=== PATIENT | male | born 1970 | race American Indian/Alaskan Native ===

== ENCOUNTER 2017-05-25 23:58 | Observation (INO) | payer OTHER ==
[2017-05-26] MEDS ORDERED: Sodium Chloride 0.9% 10 ML Syringe FLUSH PRN (00:08)
[2017-05-26] MEDS ORDERED: Sodium Chloride 0.9% 2.5 ML Syringe FLUSH PRN (00:08)
[2017-05-26] MEDS ORDERED: Sodium Chloride 0.9% 1,000 ML IV ONE ×2 (00:10→02:56)
[2017-05-26] MEDS ORDERED: Morphine 2 MG/ML Syringe IVPUSH ONE (00:10)
[2017-05-26] MEDS ORDERED: Ketorolac 30 MG/ML SDV IVPUSH ONE (00:10)
[2017-05-26] MEDS ORDERED: Acetaminophen 500 MG Tab PO ONE (00:13)
--- NOTE | 2017-05-26 00:13 | EDM.PDOC ---
ED HPI GENERAL MEDICAL PROBLEM - General Chief Complaint: Chest Pain Stated Complaint: SHORTNESS OF BREATH Time Seen by Provider: 05/26/17 00:03 - History of Present Illness INITIAL COMMENTS - FREE TEXT/NARRATIVE: HISTORY AND PHYSICAL: History of present illness: The patient is a 47-year-old male with no stated medical history no cardiac or pulmonary disease who presents with left-sided chest pain/chest wall pain that started at 2 AM yesterday morning, approximately 22 hours ago. The patient was on vacation in the [facility] and said it started before he left the [facility] and continue throughout the day and throughout his flight home. He has no fever or cough runny nose abdominal pain vomiting or diarrhea. He denies any trauma to the area. Patient says the pain is worse with certain movements and deep breaths. He says he has had episodes of this in the past but they usually only last about 20 minutes and if he slows down his breathing and tries to calm down a usually gets better. He has never been diagnosed with any lung problems. He says the pain is localized to one specific area of his left anterior chest wall and does not radiate. Patient was unaware that he had a fever when he arrived here in the ED but in triage was noted to have a temp of 101.6 Patient denies any leg pain calf pain or leg asymmetry Review of systems: As per history of present illness and below otherwise all systems reviewed and negative. Past medical history: As per history of present illness and as reviewed below otherwise noncontributory. Surgical history: As per history of present illness and as reviewed below otherwise noncontributory. Social history: No reported history of drug or alcohol abuse. Family history: As per history of present illness and as reviewed below otherwise noncontributory. Physical exam: Gen.: Well-developed well-nourished man seems uncomfortable in the room with movements and breaths but is not specifically breathless. Vital signs are noted by me including his temperature. HEENT: Atraumatic, normocephalic, pupils reactive, negative for conjunctival pallor or scleral icterus, mucous membranes moist, throat clear, neck supple, nontender, trachea midline. Lungs: Clear to auscultation, breath sounds equal bilaterally, chest discrete tenderness of the anterior lower rib cage/chest wall on the left underneath the breast with reproducible pain, there is no crepitus defects or deformities and there is no wheezing or stridor. There is splinting as the patient refrains from taking a deep breath due to the discomfort. Heart: S1S2, regular rhythm tachycardic rate, negative for clicks, rubs, or JVD. Abdomen: Soft, nondistended, nontender. Negative for masses or hepatosplenomegaly. NABS Pelvis: Stable nontender. Genitourinary: Deferred. Rectal: Deferred. Extremities: Atraumatic, negative for cords or calf pain. Neurovascular unremarkable. No pedal edema or leg asymmetry Neuro: Awake, alert, oriented. Cranial nerves II through XII unremarkable. Cerebellum unremarkable. Motor and sensory unremarkable throughout. Exam nonfocal. Diagnostics: EKG CBC CMP INR troponin chest x-ray influenza lactic acid CTA of the chest Therapeutics: IV O2 monitor IV fluids Tylenol Toradol morphine Lovenox Rocephin All testing results were reviewed with the patient. He now tells me that he was doing abdominal exercises before he started having this pain and he was using weights with them and he is concerned he may have pulled a muscle which then triggered all the subsequent symptomatology. He says his pain is currently improved but is still present and he rates as a 4-5/10. He says it is still worse when he takes a deep breath or has certain movements. When the patient is at rest his O2 sat does dip down to 91%. The CTA of the chest did not show any central pulmonary emboli but it was a suboptimal study for smaller emboli. In light of the patient's presentation with fever and hypoxia on room air I will discuss the case with our hospitalist Dr. Newsome. 0250: Case was discussed with Dr. Newsome and he agrees with observation admission on telemetry. I will send 2 blood cultures, give a dose of Rocephin and a dose of Lovenox. Impression: Pleuritic left chest pain with fever and mild hypoxia etiology unclear Definitive disposition and diagnosis as appropriate pending reevaluation and review of above. chest Pain Score (Numeric/FACES): 10 - Related Data Allergies Allergy/AdvReac Type Severity Reaction Status Date / Time aspirin Allergy Stomach Verified 05/26/17 00:09 Upset Home Meds: Home Meds . [No Known Home Meds] 07/10/15 [History] Past Medical History - Past Health History Medical/Surgical History: Denies Medical/Surgical History Musculoskeletal History: Reports: None Neurological History: Reports: None Psychiatric History: Reports: None Hematologic History: Reports: None Immunologic History: Reports: None Dermatologic History: Reports: None - Past Surgical History Musculoskeletal Surgical History: Reports: Other (See Below) Social & Family History - Tobacco Use Smoking Status *Q: Never Smoker - Recreational Drug Use Recreational Drug Use: No ED ROS GENERAL - Review of Systems Review Of Systems: ROS reveals no pertinent complaints other than HPI. ED EXAM, GENERAL - Physical Exam Exam: See Below (See dictation) Course - Vital Signs Last Recorded V/S: Last Vital Signs Temp 37.2 C 05/26/17 02:34 Pulse 107 H 05/26/17 02:34 Resp 95 H 05/26/17 02:34 BP 111/69 05/26/17 02:34 Pulse Ox 2 L 05/26/17 02:34 - Orders/Labs/Meds Orders: Active Orders 24 hr Category Date Time Status Patient Status [ADT] Stat ADT 05/26/17 02:51 Ordered Cardiac Monitoring [RC] . DIRECTED Care 05/26/17 00:08 Active EKG Documentation Completion [RC] STAT Care 05/26/17 00:08 Active Oxygen Therapy, ED [RC] ASDIRECTED Care 05/26/17 00:08 Active Pulse Oximetry [RC] ASDIRECTED Care 05/26/17 00:08 Active Ang Chest [CT] Stat Exams 05/26/17 01:21 Taken Chest 2V [CR] Stat Exams 05/26/17 00:13 Taken CULTURE BLOOD [BC] Stat Lab 05/26/17 02:50 Ordered CULTURE BLOOD [BC] Stat Lab 05/26/17 02:50 Ordered Enoxaparin [Lovenox] Med 05/26/17 02:50 Once 100 mg SUBCUT ONETIME ONE Sodium Chloride 0.9% [Saline Flush] Med 05/26/17 00:08 Active 10 ml FLUSH ASDIRECTED PRN Sodium Chloride 0.9% [Saline Flush] Med 05/26/17 00:08 Active 2.5 ml FLUSH ASDIRECTED PRN cefTRIAXone [Rocephin in Dextrose,Iso-Osm 2 GM/50 ML] 2 Med 05/26/17 02:50 Ordered gm Premix Bag 1 bag IV ONETIME Blood Culture x2 Reflex Set [OM.PC] Stat Oth 05/26/17 02:50 Ordered Saline Lock Insert [OM.PC] Stat Oth 05/26/17 00:08 Ordered Medication Orders Sodium Chloride (Saline Flush) 10 ml FLUSH ASDIRECTED PRN PRN Reason: Keep Vein Open Last Admin: 05/26/17 00:23 Dose: 10 ml Sodium Chloride (Saline Flush) 2.5 ml FLUSH ASDIRECTED PRN PRN Reason: Keep Vein Open Last Admin: 05/26/17 00:18 Dose: 2.5 ml Labs: Laboratory Tests 05/26/17 05/26/17 05/26/17 Range/Units 00:05 00:05 00:05 WBC 12.49 H (4.0-11.0) K/uL RBC 5.13 (4.50-5.90) M/uL Hgb 15.7 (13.0-17.0) g/dL Hct 45.7 (38.0-50.0) % MCV 89.1 (80.0-98.0) fL MCH 30.6 (27.0-32.0) pg MCHC 34.4 (31.0-37.0) g/dL RDW Std Deviation 40.7 (28.0-62.0) fl RDW Coeff of Brandon 13 (11.0-15.0) % Plt Count 236 (150-400) K/uL MPV 10.30 (7.40-12.00) fL Neut % (Auto) 77.2 (48.0-80.0) % Lymph % (Auto) 11.0 L (16.0-40.0) % Banks % (Auto) 10.1 (0.0-15.0) % Eos % (Auto) 1.6 (0.0-7.0) % Baso % (Auto) 0.1 (0.0-1.5) % Neut # (Auto) 9.7 H (1.4-5.7) K/uL Lymph # (Auto) 1.4 (0.6-2.4) K/uL Banks # (Auto) 1.3 H (0.0-0.8) K/uL Eos # (Auto) 0.2 (0.0-0.7) K/uL Baso # (Auto) 0.0 (0.0-0.1) K/uL INR 1.03 (0.86-1.11) Lactate (0.20-2.00) mmol/L Sodium 139 (136-146) mmol/L Potassium 3.9 (3.5-5.1) mmol/L Chloride 105 (98-110) mmol/L Carbon Dioxide 23 (21-31) mmol/L BUN 14 (6.0-23.0) mg/dL Creatinine 1.1 (0.6-1.5) mg/dL Est Cr Clr Drug Dosing 84.80 mL/min Estimated GFR (MDRD) > 60.0 ml/min Glucose 107 (60-110) mg/dL Calcium 9.6 (8.8-10.8) mg/dL Total Bilirubin 0.8 (0.1-1.5) mg/dL AST 13 (5-40) IU/L ALT 17 (8-54) IU/L Alkaline Phosphatase 96 (40-150) Troponin I < 0.10 (0.0-0.29) NG/ML Total Protein 7.9 (6.0-8.0) g/dL Albumin 4.4 (3.5-5.0) g/dL Globulin 3.5 (2.0-3.5) g/dL Albumin/Globulin Ratio 1.3 (1.3-2.8) 05/26/17 Range/Units 00:08 WBC (4.0-11.0) K/uL RBC (4.50-5.90) M/uL Hgb (13.0-17.0) g/dL Hct (38.0-50.0) % MCV (80.0-98.0) fL MCH (27.0-32.0) pg MCHC (31.0-37.0) g/dL RDW Std Deviation (28.0-62.0) fl RDW Coeff of Brandon (11.0-15.0) % Plt Count (150-400) K/uL MPV (7.40-12.00) fL Neut % (Auto) (48.0-80.0) % Lymph % (Auto) (16.0-40.0) % Banks % (Auto) (0.0-15.0) % Eos % (Auto) (0.0-7.0) % Baso % (Auto) (0.0-1.5) % Neut # (Auto) (1.4-5.7) K/uL Lymph # (Auto) (0.6-2.4) K/uL Banks # (Auto) (0.0-0.8) K/uL Eos # (Auto) (0.0-0.7) K/uL Baso # (Auto) (0.0-0.1) K/uL INR (0.86-1.11) Lactate 1.0 (0.20-2.00) mmol/L Sodium (136-146) mmol/L Potassium (3.5-5.1) mmol/L Chloride (98-110) mmol/L Carbon Dioxide (21-31) mmol/L BUN (6.0-23.0) mg/dL Creatinine (0.6-1.5) mg/dL Est Cr Clr Drug Dosing mL/min Estimated GFR (MDRD) ml/min Glucose (60-110) mg/dL Calcium (8.8-10.8) mg/dL Total Bilirubin (0.1-1.5) mg/dL AST (5-40) IU/L ALT (8-54) IU/L Alkaline Phosphatase (40-150) Troponin I (0.0-0.29) NG/ML Total Protein (6.0-8.0) g/dL Albumin (3.5-5.0) g/dL Globulin (2.0-3.5) g/dL Albumin/Globulin Ratio (1.3-2.8) Meds: Medications Generic Name Dose Route Start Last Admin Trade Name Freq PRN Reason Stop Dose Admin Sodium Chloride 10 ml 05/26/17 00:08 05/26/17 00:23 Saline Flush FLUSH 10 ml ASDIRECTED PRN Administration Keep Vein Open Sodium Chloride 2.5 ml 05/26/17 00:08 05/26/17 00:18 Saline Flush FLUSH 2.5 ml ASDIRECTED PRN Administration Keep Vein Open Discontinued Medications Generic Name Dose Route Start Last Admin Trade Name Freq PRN Reason Stop Dose Admin Acetaminophen 1,000 mg 05/26/17 00:13 05/26/17 00:24 Tylenol Extra Strength PO 05/26/17 00:14 1,000 mg ONETIME ONE Administration Sodium Chloride 1,000 mls @ 999 mls/hr 05/26/17 00:10 05/26/17 00:18 Normal Saline IV 05/26/17 01:10 999 mls/hr STAT ONE Administration Iopamidol 50 ml 05/26/17 02:08 05/26/17 02:09 Isovue Multipack-370 (76%) IVPUSH 05/26/17 02:09 45 ml ONETIME ONE Administration Ketorolac Tromethamine 30 mg 05/26/17 00:10 05/26/17 00:20 Toradol IVPUSH 05/26/17 00:11 30 mg ONETIME ONE Administration Morphine Sulfate 4 mg 05/26/17 00:10 05/26/17 00:21 Morphine IVPUSH 05/26/17 00:11 4 mg ONETIME ONE Administration Departure - Departure Time of Disposition: 02:53 Disposition: Refer to Observation Condition: Good Clinical Impression: Atypical chest pain, Hypoxia Fever Qualifiers: Fever type: due to other condition Qualified Code(s): R50.81 - Fever presenting with conditions classified elsewhere - Discharge Information Referrals: PCP,None [Primary Care Provider] - Forms: ED Department Discharge - My Orders Last 24 Hours: My Active Orders 05/26/17 00:08 Cardiac Monitoring [RC] . DIRECTED EKG Documentation Completion [RC] STAT Oxygen Therapy, ED [RC] ASDIRECTED Pulse Oximetry [RC] ASDIRECTED Sodium Chloride 0.9% [Saline Flush] 10 ml FLUSH ASDIRECTED PRN Sodium Chloride 0.9% [Saline Flush] 2.5 ml FLUSH ASDIRECTED PRN Saline Lock Insert [OM.PC] Stat 05/26/17 00:13 Chest 2V [CR] Stat 05/26/17 01:21 Ang Chest [CT] Stat 05/26/17 02:50 CULTURE BLOOD [BC] Stat CULTURE BLOOD [BC] Stat Enoxaparin [Lovenox] 100 mg SUBCUT ONETIME ONE cefTRIAXone [Rocephin in Dextrose,Iso-Osm 2 GM/50 ML] 2 gm Premix Bag 1 bag IV ONETIME Blood Culture x2 Reflex Set [OM.PC] Stat 05/26/17 02:51 Patient Status [ADT] Stat - Assessment/Plan Last 24 Hours: My Active Orders 05/26/17 00:08 Cardiac Monitoring [RC] . DIRECTED EKG Documentation Completion [RC] STAT Oxygen Therapy, ED [RC] ASDIRECTED Pulse Oximetry [RC] ASDIRECTED Sodium Chloride 0.9% [Saline Flush] 10 ml FLUSH ASDIRECTED PRN Sodium Chloride 0.9% [Saline Flush] 2.5 ml FLUSH ASDIRECTED PRN Saline Lock Insert [OM.PC] Stat 05/26/17 00:13 Chest 2V [CR] Stat 05/26/17 01:21 Ang Chest [CT] Stat 05/26/17 02:50 CULTURE BLOOD [BC] Stat CULTURE BLOOD [BC] Stat Enoxaparin [Lovenox] 100 mg SUBCUT ONETIME ONE cefTRIAXone [Rocephin in Dextrose,Iso-Osm 2 GM/50 ML] 2 gm Premix Bag 1 bag IV ONETIME Blood Culture x2 Reflex Set [OM.PC] Stat 05/26/17 02:51 Patient Status [ADT] Stat
[2017-05-26 00:35] LABS: CHLORIDE,CL 105 mmol/L (98-110); SODIUM,NA 139 mmol/L (136-146)
[2017-05-26] MEDS ORDERED: Iopamidol 755 MG/ML 200 ML Multipack Bottle IVPUSH ONE (02:08)
[2017-05-26] MEDS ORDERED: cefTRIAXone 2 GM in Premix Bag 1 BAG IV ONE (02:50)
[2017-05-26] MEDS ORDERED: Enoxaparin 100 MG/1 ML Syringe SUBCUT ONE (02:50)
[2017-05-26] MEDS ORDERED: FLU Vacc QS 2017-18 (36mos UP)/PF 60 MCG/0.5 ML Syringe IM ONE (06:00)
[2017-05-26 06:37] LABS: CHLORIDE,CL 108 mmol/L (98-110); SODIUM,NA 139 mmol/L (136-146)
[2017-05-26] MEDS: Morphine 2 MG/ML Syringe IVPUSH PRN ×2 (08:18→16:10)
[2017-05-26] MEDS ORDERED: Levofloxacin/Dextrose 5%-Water 750 MG in Premix Bag 1 BAG IV ONE (09:00)
--- NOTE | 2017-05-26 09:02 | PCM.HP ---
H&P History of Present Illness - General Date of Service: 05/26/17 Admit Problem/Dx: Admission Diagnosis/Problem Admission Diagnosis/Problem Chest pain Source of Information: Patient History Limitations: Reports: No Limitations - History of Present Illness Initial Comments - Free Text/Narative: 47 yo male presenting to the ED with a chief complaint of chest pain no significant pmh. Patient presented to ED with left-sided chest pain/chest wall pain that started at 2 AM the previous morning approximately 22 hours before presenting to the ED. The patient was on vacation in the [facility] and said it started before he had left the [facility] and continued throughout the day and throughout his flight home. He denied any associated diaphoresis, nausea or vomiting. He denied any trauma to the area but did report just starting to exercise again and perhaps pulling a muslce when he was doing lat pull downs. He reported the pain was worse with certain movements and deep breaths. He also admits to having had episodes of this in the past but usually only last about 20 minutes and if he slows down his breathing and tries to calm down they usually gets better. He has never been diagnosed with any lung problems. He says the pain is localized to one specific area of his left anterior chest wall and does not radiate. Patient was unaware that he had a fever when he arrived here in the ED he was noted to have a temp of 101.6 Patient denied any leg pain calf pain or leg asymmetry. He also denied any hemoptisis or history of coagualtion discorders. In ED patient was found to have mild leukocytosis at 12.4 K, normal lactate, unremarkable CMP, negative troponin, negative flu. Chest x-ray revealed mild bibasilar atelectasis left greater than right. CTA was performed showing bibasilar scarring and atelectasis but it was a limited study for complete evaluation of pulmonary embolism. Patient's well's criteria when calculated as low probability -2. Patient was febrile with a maximum temperature 101.6. Mildly hypertensive with blood pressure 145/74 and tachycardic with a heart rate of 116. Blood cultures were obtained and patient was given 1 g of Rocephin. He was also given 40 mg Sub q Lovenox. Patient was admitted for observation for atypical chest pain. chest Pain Score (Numeric/FACES): 5 - Related Data Allergies/Adverse Reactions: Allergies Allergy/AdvReac Type Severity Reaction Status Date / Time aspirin Allergy Stomach Verified 05/26/17 00:09 Upset Home Medications: Home Meds Cetirizine HCl/Pseudoephedrine [ZyrTEC-D] 1 tab PO DAILY PRN 05/26/17 [History] Past Medical History - Past Health History Medical/Surgical History: Denies Medical/Surgical History HEENT History: Reports: None Cardiovascular History: Reports: None Respiratory History: Reports: None Gastrointestinal History: Reports: None Genitourinary History: Reports: None Musculoskeletal History: Reports: None Neurological History: Reports: None Psychiatric History: Reports: None Endocrine/Metabolic History: Reports: None Hematologic History: Reports: None Immunologic History: Reports: None Oncologic (Cancer) History: Reports: None Dermatologic History: Reports: None - Infectious Disease History Infectious Disease History: Reports: Chicken Pox, Measles - Past Surgical History Head Surgeries/Procedures: Reports: None Musculoskeletal Surgical History: Reports: Other (See Below) Social & Family History - Family History Family Medical History: Noncontributory - Tobacco Use Smoking Status *Q: Never Smoker - Caffeine Use Caffeine Use: Reports: None - Recreational Drug Use Recreational Drug Use: No H&P Review of Systems - Review of Systems: Review Of Systems: See Below General: Denies: Fever, Chills, Malaise, Weakness HEENT: Denies: Headaches, Sore Throat Pulmonary: Denies: Shortness of Breath, Cough, Sputum Cardiovascular: Reports: Chest Pain. Denies: Palpitations, Edema, Syncope Gastrointestinal: Denies: Abdominal Pain, Black Stool, Bloody Stool, Diarrhea, Nausea, Vomiting Genitourinary: Denies: Dysuria, Hematuria Musculoskeletal: Denies: Neck Pain, Leg Pain Skin: Denies: Cyanosis Psychiatric: Denies: Confusion Neurological: Denies: Confusion, Dizziness, Headache Exam - Exam Exam: See Below - Vital Signs Vital Signs: Last Vital Signs Temp 99.1 F 05/26/17 03:50 Pulse 96 05/26/17 03:50 Resp 20 05/26/17 03:50 BP 125/85 05/26/17 03:50 Pulse Ox 97 05/26/17 03:50 Weight: 86.273 kg - Exam Quality Assessment: DVT Prophylaxis General: Alert, Oriented, Cooperative HEENT: Conjunctiva Clear, EACs Clear, EOMI, Hearing Intact, Mucosa Moist & [place] , Nares Patent, Normal Nasal Septum, Posterior Pharynx Clear, PERRLA Neck: Supple, Trachea Midline, 2 Lungs: Clear to Auscultation, Normal Respiratory Effort Cardiovascular: Regular Rate, Regular Rhythm, Normal S1, Normal S2 GI/Abdominal Exam: Normal Bowel Sounds, Soft, Non-Tender, No Organomegaly, No Distention Back Exam: Normal Inspection Extremities: Normal Inspection, Normal Range of Motion, Non-Tender, No Pedal Edema, Normal Capillary Refill. No: Little's Sign Peripheral Pulses: 2+: Radial (L), Radial (R), Posterior Tibial (L), Posterior Tibial (R), Dorsalis Pedis (L), Dorsalis Pedis (R) Skin: Warm, Dry, Intact Neurological: Cranial Nerves Intact Neuro Extensive - Mental Status: Alert, Oriented x3, Normal Mood/Affect, Normal Cognition Neuro Extensive - Motor, Sensory, Reflexes: CN II-XII Intact Psychiatric: Alert, Normal Affect, Normal Mood - Patient Data Lab Results Last 24 hrs: Laboratory Results - last 24 hr 05/26/17 05/26/17 Range/Units 06:09 06:09 WBC 10.08 (4.0-11.0) K/uL RBC 4.43 L (4.50-5.90) M/uL Hgb 13.8 (13.0-17.0) g/dL Hct 39.5 (38.0-50.0) % MCV 89.2 (80.0-98.0) fL MCH 31.2 (27.0-32.0) pg MCHC 34.9 (31.0-37.0) g/dL RDW Std Deviation 40.3 (28.0-62.0) fl RDW Coeff of Brandon 13 (11.0-15.0) % Plt Count 207 (150-400) K/uL MPV 9.90 (7.40-12.00) fL Nucleated RBC % 0.0 /100WBC Nucleated RBCs # 0 K/uL Sodium 139 (136-146) mmol/L Potassium 4.2 (3.5-5.1) mmol/L Chloride 108 (98-110) mmol/L Carbon Dioxide 24 (21-31) mmol/L BUN 14 (6.0-23.0) mg/dL Creatinine 1.1 (0.6-1.5) mg/dL Est Cr Clr Drug Dosing 84.80 mL/min Estimated GFR (MDRD) > 60.0 ml/min Glucose 94 (60-110) mg/dL Calcium 8.9 (8.8-10.8) mg/dL Total Bilirubin 0.7 (0.1-1.5) mg/dL AST 14 (5-40) IU/L ALT 14 (8-54) IU/L Alkaline Phosphatase 76 (40-150) Troponin I < 0.10 (0.0-0.29) NG/ML Total Protein 6.3 (6.0-8.0) g/dL Albumin 3.6 (3.5-5.0) g/dL Globulin 2.7 (2.0-3.5) g/dL Albumin/Globulin Ratio 1.3 (1.3-2.8) Result Diagrams: 05/26/17 06:09 05/26/17 06:09 *Q Meaningful Use (ADM) - VTE *Q VTE Criteria *Q: - Stroke *Q Stroke Criteria *Q: - AMI *Q AMI Criteria *Q: - Problem List (1) Leukocytosis, unspecified SNOMED Code(s): 191187401 ICD Code: D72.829 - ELEVATED WHITE BLOOD CELL COUNT, UNSPECIFIED Status: Acute Priority: High Current Visit: Yes Qualifiers: Leukocytosis type: unspecified Qualified Code(s): D72.829 - Elevated white blood cell count, unspecified (2) Atypical chest pain SNOMED Code(s): 477136576 ICD Code: R07.89 - OTHER CHEST PAIN Status: Acute Priority: High Current Visit: Yes (3) Fever SNOMED Code(s): 375126235 ICD Code: R50.9 - FEVER, UNSPECIFIED Status: Acute Priority: High Current Visit: Yes Qualifiers: Fever type: due to other condition Qualified Code(s): R50.81 - Fever presenting with conditions classified elsewhere Problem List Initiated/Reviewed/Updated: Yes Orders Last 24hrs: Active Orders 24 hr Category Date Time Status Patient Status [ADT] Routine ADT 05/26/17 03:15 Active Telemetry Monitoring [Cardiac Monitoring] [RC] . Care 05/26/17 03:11 Active DIRECTED Heart Healthy Diet [DIET] Diet 05/26/17 Breakfast Active TROPONIN I [CHEM] Q6H Lab 05/26/17 12:05 Ordered Acetaminophen [Tylenol] Med 05/26/17 05:09 Active 650 mg PO Q6H PRN Enoxaparin [Lovenox] Med 05/26/17 15:00 Active 85 mg SUBCUT DAILY@1500 Levofloxacin/Dextrose 5%-Water [Levaquin in D5W 750 MG/ Med 05/26/17 09:00 Ordered 150 ML] 750 mg Premix Bag 1 bag IV ONETIME Morphine Med 05/26/17 05:10 Active 2 mg IVPUSH Q2H PRN Sodium Chloride 0.9% [Normal Saline] 1,000 ml Med 05/26/17 02:56 Active IV STAT Medication Orders Acetaminophen (Tylenol) 650 mg PO Q6H PRN PRN Reason: Pain Enoxaparin Sodium (Lovenox) 85 mg SUBCUT DAILY@1500 DOC Sodium Chloride (Normal Saline) 1,000 mls @ 125 mls/hr IV STAT ONE Stop: 05/26/17 10:55 Last Admin: 05/26/17 03:09 Dose: 125 mls/hr Levofloxacin/Dextrose 750 mg/ (Premix) 150 mls @ 100 mls/hr IV ONETIME ONE Stop: 05/26/17 10:29 Morphine Sulfate (Morphine) 2 mg IVPUSH Q2H PRN PRN Reason: Pain (severe 7-10) Last Admin: 05/26/17 08:18 Dose: 2 mg Sodium Chloride (Saline Flush) 10 ml FLUSH ASDIRECTED PRN PRN Reason: Keep Vein Open Last Admin: 05/26/17 00:23 Dose: 10 ml Sodium Chloride (Saline Flush) 2.5 ml FLUSH ASDIRECTED PRN PRN Reason: Keep Vein Open Last Admin: 05/26/17 00:18 Dose: 2.5 ml Assessment/Plan Comment:: 47-year-old male admitted 05/26/17 for atypical chest pain with associated fever and mild leukocytosis with no significant past medical history. Atypical chest pain: Pain is somewhat reproducible on exam and seems to be more chest wall nature. Patient does admit to recently starting exercise and possibly causing injury to his chest wall while exercising. Initial troponin was negative we will continue serial troponins every [address] him on telemetry. CTA showed bibasilar scarring and atelectasis but a poor study to evaluate for PE, however Wells criteria is -2 low probability. Patient maybe splinting from chest wall musculoskeletal strain leading to decreased inspiratory volumes which may be resulting in some atelectasis which could also explain his mildly elevated white blood cells and low-grade fever. We however will treat him for possible pneumonia with Levaquin IV and monitor closely. Fever/mild leukocytosis: As above a be a result of atelectasis from splinting secondary to musculoskeletal pain. However, we will treat for possible community -acquired pneumonia with Levaquin. VTE proph: Lovenox 40 mg subq, SCD Dispo: 1-2 days.
[2017-05-26] MEDS: Acetaminophen 325 MG Tab PO PRN ×2 (09:40→20:20)
[2017-05-26] MEDS ORDERED: Ondansetron 4 MG Tab.DIS PO PRN (12:54)
[2017-05-26] MEDS ORDERED: Morphine 2 MG/ML Syringe IVPUSH PRN (12:54)
[2017-05-26] MEDS ORDERED: Enoxaparin 100 MG/1 ML Syringe SUBCUT SCH (15:00)
[2017-05-27 06:24] LABS: CHLORIDE,CL 104 mmol/L (98-110); SODIUM,NA 138 mmol/L (136-146)
[2017-05-27] MEDS: Acetaminophen 325 MG Tab PO PRN (07:55)
[2017-05-27 08:24] VITALS: BP 121/77
[2017-05-27] MEDS ORDERED: Enoxaparin 40 MG/0.4 ML Syringe SUBCUT SCH (09:00)
[2017-05-27] MEDS ORDERED: Levofloxacin/Dextrose 5%-Water 750 MG in Premix Bag 1 BAG IV SCH (09:00)
--- NOTE | 2017-05-27 11:18 | CR ---
EXAM DATE: 05/26/17 PATIENT'S AGE: 47 Patient: ROWAN MURPHY Facility: [place], [place] Site . Site : [id number] Study: XRay Chest [id number]/7/2018 12:39:06 AM Ordering Physician: Narciso Horowitz Final Report: INDICATIONS: Chest pain. Shortness of breath. TECHNIQUE: Chest 2 view. COMPARISON: Chest radiograph July 10, 2015. FINDINGS: No pneumothorax or pleural effusion. Mild bibasilar opacities, left greater than right. The lungs are otherwise clear. Cardiac and mediastinal contours are within normal limits. Upper abdomen and osseous structures show no acute abnormality. IMPRESSION: Mild bibasilar atelectasis or airspace disease, left greater than right. Dictated by Juan Luis Macedo MD @ 05/26/2017 1:12:33 AM Dictated by: Juan Luis Macedo MD @ 05/26/2017 01:12:39 (Electronic Signature) Report Signed by Proxy. [email or web address]
--- NOTE | 2017-05-27 11:19 | CT ---
EXAM DATE: 05/26/17 PATIENT'S AGE: 47 Patient: ROWAN MURPHY Facility: [place], [place] Site . Site : 1970 Study: CT Chest Angio [id number]/[id number] 2:07:10 AM Ordering Physician: Narciso Horowitz Final Report: INDICATION: Shortness of breath. TECHNIQUE: CT chest pulmonary angiogram acquired with 45 mL of Isovue 370 IV contrast. COMPARISON: None FINDINGS: Cardiovascular structures: There is suboptimal opacification of pulmonary arteries. Motion artifact also degrades image quality. Given these limitations, there is no central pulmonary embolus. More peripheral pulmonary emboli cannot be excluded. The thoracic aorta is normal in caliber. Heart size is within normal limits. Mediastinum and shimon: No mass or adenopathy. Lungs: No pneumothorax. There are secretions in the trachea and proximal mainstem bronchi. Bibasilar scarring and atelectasis. The lungs are otherwise clear. Pleura and pericardium: No effusions. Chest wall and axilla: No mass or adenopathy. Bones: No significant findings. Upper abdomen: Unremarkable. IMPRESSION: Limited study for evaluation of pulmonary embolus. No central pulmonary embolus. Bibasilar atelectasis. Dictated by Juan Luis Macedo MD @ 05/26/2017 2:34:55 AM Dictated by: Juan Luis Macedo MD @ 05/26/2017 02:35:43 (Electronic Signature) Report Signed by Proxy. [facility] MED[facility] CENTERChristophe
--- NOTE | 2017-05-27 11:43 | PCM.DCSUM1 ---
Discharge Summary - Hospital Course HPI Initial Comments: 47-year-old male admitted 05/26/17 for atypical chest pain with associated fever and mild leukocytosis with no significant past medical history. Brief History: Patient presented to ED with left-sided chest pain/chest wall pain that started at 2 AM the previous morning approximately 22 hours before presenting to the ED. The patient was on vacation in the [facility] and said it started before he had left the [facility] and continued throughout the day and throughout his flight home. He denied any associated diaphoresis, nausea or vomiting. He denied any trauma to the area but did report just starting to exercise again and perhaps pulling a muslce when he was doing lat pull downs. He reported the pain was worse with certain movements and deep breaths. He also admits to having had episodes of this in the past but usually only last about 20 minutes and if he slows down his breathing and tries to calm down they usually gets better. He has never been diagnosed with any lung problems. He said the pain was localized to one specific area of his left anterior chest wall and did not radiate. Patient was unaware that he had a fever when he arrived here in the ED he was noted to have a temp of 101.6 Patient denied any leg pain calf pain or leg asymmetry. He also denied any hemoptisis or history of coagualtion discorders. - Discharge Data Discharge Date: 05/27/17 Discharge Disposition: Home, Self-Care 01 Condition: Good - Discharge Diagnosis/Problem(s) (1) Leukocytosis, unspecified SNOMED Code(s): 884830428 ICD Code: D72.829 - ELEVATED WHITE BLOOD CELL COUNT, UNSPECIFIED Status: Resolved Priority: High Qualifiers: Leukocytosis type: unspecified Qualified Code(s): D72.829 - Elevated white blood cell count, unspecified (2) Atypical chest pain SNOMED Code(s): 610890234 ICD Code: R07.89 - OTHER CHEST PAIN Status: Resolved Priority: High (3) Fever SNOMED Code(s): 408802473 ICD Code: R50.9 - FEVER, UNSPECIFIED Status: Resolved Priority: High Qualifiers: Fever type: due to other condition Qualified Code(s): R50.81 - Fever presenting with conditions classified elsewhere - Patient Instructions Diet: Usual Diet as Tolerated Activity: Rest and Relax Today Driving: Do Not Drive Showering/Bathing: September Shower Notify Provider of: Fever, Increased Pain, Nausea and/or Vomiting Other/Special Instructions: Follow-up with scheduled primary care appointment. Take antibiotics as perscribed for 4 more days. Return to ED if worsening symptoms. - Discharge Plan Prescriptions/Med Rec: Levofloxacin [Levaquin] 750 mg PO DAILY #4 tablet Home Medications: Home Meds Cetirizine HCl/Pseudoephedrine [ZyrTEC-D] 1 tab PO DAILY PRN 05/26/17 [History] Levofloxacin [Levaquin] 750 mg PO DAILY #4 tablet 05/27/17 [Rx] Patient Handouts: Fever, Adult, Nonspecific Chest Pain, [id number], Levofloxacin tablets Referrals: Finn Quezada MD [Resident] - 06/04/17 2:30 pm - Discharge Summary/Plan Comment DC Time >30 min.: Yes Discharge Summary/Plan Comment: 47-year-old male admitted 05/26/17 for atypical chest pain with associated fever and mild leukocytosis with no significant past medical history. Patient presented to ED with left-sided chest pain/chest wall pain that started at 2 AM the previous morning approximately 22 hours before presenting to the ED. The patient was on vacation in the [facility] and said it started before he had left the [facility] and continued throughout the day and throughout his flight home. He denied any associated diaphoresis, nausea or vomiting. He denied any trauma to the area but did report just starting to exercise again and perhaps pulling a muslce when he was doing lat pull downs. He reported the pain was worse with certain movements and deep breaths. He also admits to having had episodes of this in the past but usually only last about 20 minutes and if he slows down his breathing and tries to calm down they usually gets better. He has never been diagnosed with any lung problems. He said the pain was localized to one specific area of his left anterior chest wall and did not radiate. Patient was unaware that he had a fever when he arrived here in the ED he was noted to have a temp of 101.6 Patient denied any leg pain calf pain or leg asymmetry. He also denied any hemoptisis or history of coagualtion discorders. In ED patient was found to have mild leukocytosis at 12.4 K, normal lactate, unremarkable CMP, negative troponin, negative flu. Chest x-ray revealed mild bibasilar atelectasis left greater than right. CTA was performed showing bibasilar scarring and atelectasis but it was a limited study for complete evaluation of pulmonary embolism. Patient's well's criteria when calculated as low probability -2. Patient was febrile with a maximum temperature 101.6. Mildly hypertensive with blood pressure 145/74 and tachycardic with a heart rate of 116. Blood cultures were obtained and patient was given 1 g of Rocephin. He was also given 40 mg Sub q Lovenox. Patient was admitted for atypical chest pain. Atypical chest pain: Pain was somewhat reproducible on exam and seemed to be more chest wall in nature. Patient does admit to recently starting exercise and possibly causing injury to his chest wall while exercising. Serial troponins were negative. CTA showed bibasilar scarring and atelectasis but a poor study to evaluate for PE, however Wells criteria is -2 low probability. Patient perhaps was splinting from chest wall musculoskeletal strain leading to decreased inspiratory volumes which may have resulted in some atelectasis which could also explain his mildly elevated white blood cells and low-grade fever. We however treated him for possible pneumonia with Levaquin IV and monitor closely. Patient did well throughout his stay and was discharged home with scheduled PCP follow-up as well as a perscription for for an addition 4 days of levaquin for a total of 5 days of antibiotics. He was instructed to return to the ED if any of his symptoms returned. - General Info Date of Service: 05/27/17 Admission Dx/Problem (Free Text: Admission Diagnosis/Problem Admission Diagnosis/Problem Chest pain Subjective Update: Doing well. Chest pain has improved but still hurts when he coughs or moves wrong. No nausea, vomiting, fever, chills, diarrhea. Would like to be discharged. - Review of Systems General: Denies: Fever, Weakness, Fatigue HEENT: Denies: Dysphasia, Visual Changes Pulmonary: Reports: Cough. Denies: Shortness of Breath, Sputum, Hemoptysis, Wheezing Cardiovascular: Reports: Chest Pain. Denies: Palpitations, Edema Gastrointestinal: Denies: Abdominal Pain, Nausea, Vomiting Genitourinary: Denies: Dysuria, Hematuria Musculoskeletal: Denies: Neck Pain, Foot Pain Skin: Denies: Cyanosis Neurological: Denies: Confusion, Dizziness, Headache Psychiatric: Denies: Confusion - Patient Data Vitals - Most Recent: Last Vital Signs Temp 98.9 F 05/27/17 09:47 Pulse 107 H 05/27/17 08:00 Resp 20 05/27/17 08:00 BP 121/77 05/27/17 08:00 Pulse Ox 94 L 05/27/17 08:00 Weight - Most Recent: 86.273 kg I&O - Last 24 hours: Intake & Output 05/26/17 05/27/17 05/27/17 22:59 06:59 14:59 Intake Total 2300 1440 150 Output Total 2660 1525 Balance -360 -85 150 Lab Results - Last 24 hrs: Laboratory Results - last 24 hr 05/26/17 05/27/17 05/27/17 Range/Units 12:08 05:17 05:17 WBC 10.04 (4.0-11.0) K/uL RBC 4.62 (4.50-5.90) M/uL Hgb 14.2 (13.0-17.0) g/dL Hct 41.4 (38.0-50.0) % MCV 89.6 (80.0-98.0) fL MCH 30.7 (27.0-32.0) pg MCHC 34.3 (31.0-37.0) g/dL RDW Std Deviation 40.7 (28.0-62.0) fl RDW Coeff of Brandon 13 (11.0-15.0) % Plt Count 230 (150-400) K/uL MPV 10.30 (7.40-12.00) fL Nucleated RBC % 0.0 /100WBC Nucleated RBCs # 0 K/uL Sodium 138 (136-146) mmol/L Potassium 4.3 (3.5-5.1) mmol/L Chloride 104 (98-110) mmol/L Carbon Dioxide 24 (21-31) mmol/L BUN 13 (6.0-23.0) mg/dL Creatinine 1.0 (0.6-1.5) mg/dL Est Cr Clr Drug Dosing TNP Estimated GFR (MDRD) > 60.0 ml/min Glucose 88 (60-110) mg/dL Calcium 9.3 (8.8-10.8) mg/dL Troponin I < 0.10 (0.0-0.29) NG/ML RANDALL Results - Last 24 hrs: Microbiology 05/26/17 03:06 Aerobic Blood Culture - Preliminary Blood - Venous - Lab Draw NO GROWTH AFTER 1 DAY Anaerobic Blood Culture - Preliminary NO GROWTH AFTER 1 DAY 05/26/17 03:00 Aerobic Blood Culture - Preliminary Blood - Venous NO GROWTH AFTER 1 DAY Anaerobic Blood Culture - Preliminary NO GROWTH AFTER 1 DAY Med Orders - Current: Current Medications Acetaminophen (Tylenol) 650 mg PO Q6H PRN PRN Reason: Pain Last Admin: 05/27/17 07:55 Dose: 650 mg Enoxaparin Sodium (Lovenox) 40 mg SUBCUT DAILY DOC Last Admin: 05/27/17 08:01 Dose: 40 mg Levofloxacin/Dextrose 750 mg/ (Premix) 150 mls @ 100 mls/hr IV Q24H DOC Last Admin: 05/27/17 08:01 Dose: 100 mls/hr Morphine Sulfate (Morphine) 2 mg IVPUSH Q2H PRN PRN Reason: Pain (severe 7-10) Last Admin: 05/26/17 16:10 Dose: 2 mg Morphine Sulfate (Morphine) 2 mg IVPUSH Q2H PRN PRN Reason: Pain (severe 7-10) Stop: 05/27/17 12:56 Ondansetron HCl (Zofran Odt) 4 mg PO Q4H PRN PRN Reason: nausea, able to take PO Sodium Chloride (Saline Flush) 10 ml FLUSH ASDIRECTED PRN PRN Reason: Keep Vein Open Last Admin: 05/26/17 00:23 Dose: 10 ml Sodium Chloride (Saline Flush) 2.5 ml FLUSH ASDIRECTED PRN PRN Reason: Keep Vein Open Last Admin: 05/26/17 00:18 Dose: 2.5 ml Discontinued Medications Acetaminophen (Tylenol Extra Strength) 1,000 mg PO ONETIME ONE Stop: 05/26/17 00:14 Last Admin: 05/26/17 00:24 Dose: 1,000 mg Enoxaparin Sodium (Lovenox) 100 mg SUBCUT ONETIME ONE Stop: 05/26/17 02:51 Last Admin: 05/26/17 03:09 Dose: 100 mg Enoxaparin Sodium (Lovenox) 85 mg SUBCUT DAILY@1500 DOC Sodium Chloride (Normal Saline) 1,000 mls @ 999 mls/hr IV STAT ONE Stop: 05/26/17 01:10 Last Admin: 05/26/17 00:18 Dose: 999 mls/hr Ceftriaxone Sodium/Dextrose 2 (gm/ Premix) 50 mls @ 100 mls/hr IV ONETIME ONE Stop: 05/26/17 03:19 Last Admin: 05/26/17 03:13 Dose: 100 mls/hr Sodium Chloride (Normal Saline) 1,000 mls @ 125 mls/hr IV STAT ONE Stop: 05/26/17 10:55 Last Admin: 05/26/17 03:09 Dose: 125 mls/hr Levofloxacin/Dextrose 750 mg/ (Premix) 150 mls @ 100 mls/hr IV ONETIME ONE Stop: 05/26/17 10:29 Last Admin: 05/26/17 09:34 Dose: 100 mls/hr Influenza Virus Vaccine (Pharmacy To Dose - Influenza Vaccine) 1 each IM ONETIME ONE Stop: 05/26/17 09:01 Influenza Virus Vaccine (Fluarix Quad [id number]) 60 mcg IM .ONCE ONE Stop: 05/26/17 06:01 Last Admin: 05/26/17 11:29 Dose: 60 mcg Iopamidol (Isovue Multipack-370 (76%)) 50 ml IVPUSH ONETIME ONE Stop: 05/26/17 02:09 Last Admin: 05/26/17 02:09 Dose: 45 ml Ketorolac Tromethamine (Toradol) 30 mg IVPUSH ONETIME ONE Stop: 05/26/17 00:11 Last Admin: 05/26/17 00:20 Dose: 30 mg Morphine Sulfate (Morphine) 4 mg IVPUSH ONETIME ONE Stop: 05/26/17 00:11 Last Admin: 05/26/17 00:21 Dose: 4 mg - Exam Quality Assessment: Reports: DVT Prophylaxis General: Reports: Alert, Oriented, Cooperative, No Acute Distress HEENT: Reports: Pupils Equal, Pupils Reactive, EOMI, Mucous Membr. Moist/Dike Neck: Reports: Supple, Trachea Midline Lungs: Reports: Clear to Auscultation, Normal Respiratory Effort. Denies: Crackles, Rales, Rhonchi Cardiovascular: Reports: Regular Rate, Regular Rhythm, No Murmurs GI/Abdominal Exam: Normal Bowel Sounds, Soft, Non-Tender, No Organomegaly, No Distention Back Exam: Reports: Normal Inspection Extremities: Normal Inspection, Non-Tender, No Pedal Edema, Normal Capillary Refill. No: Little's Sign Skin: Reports: Warm, Dry, Intact Neurological: Reports: No New Focal Deficit Psy/Mental Status: Reports: Alert, Normal Affect, Normal Mood *Q Meaningful Use (DIS) - VTE *Q VTE Criteria *Q: - Stroke *Q Stroke Criteria *Q: - AMI *Q AMI Criteria *Q:
== END 2017-05-27 12:04 | disposition home or self-care (01) ==
LOC: MW.ED 23:58 → MW.MS 05-26 02:51
PROVIDERS: ADMIT Family Medicine; ATTEND Family Medicine
DX: D72.829 Elevated white blood cell count, unspecified (principal); R07.89 Other chest pain; R50.81 Fever presenting with conditions classified elsewhere; Z79.899 Other long term (current) drug therapy; Z88.8 Allergy status to other drugs, medicaments and biological substances
CPT/HCPCS: 36415; 71046; 71275; 80048; 80053; 83605; 84484; 85025; 85027; 85610; 87040; 87804; 90686; 93005; 96361; 96372; 96374; 96375; 99285; A9270; G0008; J0696; J1650; J1885; J1956; J2270; J7040; Q9967

== ENCOUNTER 2017-07-07 22:01 | Emergency (ER) | payer SELFPAY ==
[2017-07-07 22:18] VITALS: BP 129/76
--- NOTE | 2017-07-07 22:28 | EDM.PDOC ---
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 No other injury no fever nausea vomiting diarrhea constipation chest pain shortness breath headache dizziness palpitation no bowel or urine symptoms no head injury or loss of consciousness associated ] Review of systems: As per history of present illness and below otherwise all systems reviewed and negative. Past medical history: As per history of present illness and as reviewed below otherwise noncontributory. Surgical history: As per history of present illness and as reviewed below otherwise noncontributory. Social history: No reported history of drug or alcohol abuse. Family history: As per history of present illness and as reviewed below otherwise noncontributory. Physical exam: HEENT: Atraumatic, normocephalic, pupils reactive, negative for conjunctival pallor or scleral icterus, mucous membranes moist, throat clear, neck supple, nontender, trachea midline. Lungs: Clear to auscultation, breath sounds equal bilaterally, chest nontender. Heart: S1S2, regular, negative for clicks, rubs, or JVD. Abdomen: Soft, nondistended, nontender. Negative for masses or hepatosplenomegaly. Negative for costovertebral tenderness. Pelvis: Stable nontender. Genitourinary: Deferred. Rectal: Deferred. Extremities: Atraumatic, negative for cords or calf pain. Neurovascular unremarkable. Neuro: Awake, alert, oriented. Cranial nerves II through XII unremarkable. Cerebellum unremarkable. Motor and sensory unremarkable throughout. Exam nonfocal. Skin bruising on the back of the left thigh/hamstring area palms sized consistent with injury otherwise unremarkable Diagnostics: [Clinical ] Therapeutics: [Tlyer wrap Rest ice ibuprofen ] Impression: [Contusion] Definitive disposition and diagnosis as appropriate pending reevaluation and review of above. left post thigh Pain Score (Numeric/FACES): 4 - Related Data Allergies Allergy/AdvReac Type Severity Reaction Status Date / Time aspirin Allergy Stomach Verified 05/26/17 00:09 Upset Home Meds: Home Meds Glucosamine/D3/Boswellia Aileen [Osteo Bi-Flex Caplet] 1 each PO DAILY 07/07/17 [ History] Omeprazole Magnesium [Prilosec Otc] 20 mg PO BID 07/07/17 [History] Past Medical History - Past Health History Medical/Surgical History: Denies Medical/Surgical History HEENT History: Reports: None Cardiovascular History: Reports: None Respiratory History: Reports: None Gastrointestinal History: Reports: GERD Genitourinary History: Reports: None Musculoskeletal History: Reports: None Neurological History: Reports: None Psychiatric History: Reports: None Endocrine/Metabolic History: Reports: None Hematologic History: Reports: None Immunologic History: Reports: None Oncologic (Cancer) History: Reports: None Dermatologic History: Reports: None - Infectious Disease History Infectious Disease History: Reports: Chicken Pox, Measles - Past Surgical History Head Surgeries/Procedures: Reports: None Social & Family History - Family History Family Medical History: Noncontributory - Tobacco Use Smoking Status *Q: Never Smoker - Caffeine Use Caffeine Use: Reports: None - Recreational Drug Use Recreational Drug Use: No Review of Systems - Review of Systems Review Of Systems: ROS reveals no pertinent complaints other than HPI. ED EXAM, GENERAL - Physical Exam Exam: See Below Course - Vital Signs Last Recorded V/S: Last Vital Signs Temp 98.4 F 07/07/17 22:01 Pulse 80 07/07/17 22:01 Resp 18 07/07/17 22:01 BP 129/76 07/07/17 22:01 Pulse Ox 95 07/07/17 22:01 Departure - Departure Time of Disposition: 22:27 Disposition: Home, Self-Care 01 Condition: Good Clinical Impression: Contusion - Discharge Information Referrals: PCP,None [Primary Care Provider] - Additional Instructions: Ice or heat 20 minute intervals 3 times daily as needed Tyler wrap for up to one week for comfort Return if symptoms persist or worsen Follow-up with primary care in 2 weeks sooner as needed Ibuprofen 400 mg to 800 mg 3 times daily 7-10 days The following information is given to patients seen in the emergency department who are being discharged to home. This information is to outline your options for follow-up care. We provide all patients seen in our emergency department with a follow-up referral. The need for follow-up, as well as the timing and circumstances, are variable depending upon the specifics of your emergency department visit. If you don't have a primary care physician on staff, we will provide you with a referral. We always advise you to contact your personal physician following an emergency department visit to inform them of the circumstance of the visit and for follow-up with them and/or the need for any referrals to a consulting specialist. The emergency department will also refer you to a specialist when appropriate. This referral assures that you have the opportunity for follow-up care with a specialist. All of these measure are taken in an effort to provide you with optimal care, which includes your follow-up. Under all circumstances we always encourage you to contact your private physician who remains a resource for coordinating your care. When calling for follow-up care, please make the office aware that this follow-up is from your recent emergency room visit. If for any reason you are refused follow-up, please contact the [facility] emergency department at and asked to speak to the emergency department charge nurse.
== END 2017-07-07 22:38 | disposition home or self-care (01) ==
LOC: MW.ED 22:01
DX: S70.12XA Contusion of left thigh, initial encounter (principal); K21.9 Gastro-esophageal reflux disease without esophagitis; Z79.899 Other long term (current) drug therapy; Z88.6 Allergy status to analgesic agent; W01.198A Fall on same level from slipping, tripping and stumbling with subsequent striking against other object, initial encounter; Y92.89 Other specified places as the place of occurrence of the external cause; Y99.0 Civilian activity done for income or pay
CPT/HCPCS: 99283

== ENCOUNTER 2017-09-24 23:35 | Emergency (ER) | payer SELFPAY ==
--- NOTE | 2017-09-24 23:58 | EDM.PDOC ---
ED HPI GENERAL MEDICAL PROBLEM - General Chief Complaint: General Stated Complaint: PT LT SIDE OF FACE NUMB Time Seen by Provider: 09/24/17 23:44 - History of Present Illness INITIAL COMMENTS - FREE TEXT/NARRATIVE: HISTORY AND PHYSICAL: History of present illness: The patient is a 47-year-old male who has no local provider and presents with multiple complaints and concerns all of which he has not addressed with a provider. The patient says that for the last several months he has had episodic chronic fatigue malaise without any focal weakness or systemic complaints. He says that for the last several weeks he has been feeling like his left upper extremity will intermittently feel swollen and tingly and over the last 24 hours it has felt more numb and tingly in a stripe-like fashion down his arm. He does not have any upper extremity weakness but he does have a history of a fall back in June and he was concerned this might causing his symptoms. He also said that earlier he felt like the left side of his face was slightly numb tingly but that has gone away. He has not had any speech or swallowing issues no headache no chest pain no shortness of breath. He has not had any fevers or chills. The patient has not had any focal weakness in any of his extremities no neck or back pain no abdominal pain and he is very vague about all of these symptoms and the time course. When asked why he specifically came in tonight he felt that the tingling in his arm seemed different and he wanted evaluation. Review of systems: As per history of present illness and below otherwise all systems reviewed and negative. Past medical history: As per history of present illness and as reviewed below otherwise noncontributory. Surgical history: As per history of present illness and as reviewed below otherwise noncontributory. Social history: No reported history of drug or alcohol abuse. Family history: As per history of present illness and as reviewed below otherwise noncontributory. Physical exam: General: Well-developed well-nourished man who is nontoxic and ambulatory in the ED. Vital signs are noted by me HEENT: Atraumatic, normocephalic,, negative for conjunctival pallor or scleral icterus, mucous membranes moist, throat clear, neck supple, nontender, trachea midline. There are no midline step-offs tenderness defects of the cervical spine Lungs: Clear to auscultation, breath sounds equal bilaterally, chest nontender. Heart: S1S2, regular and rhythm no overt murmurs Abdomen: Soft, nondistended, nontender. NABS Negative for costovertebral tenderness. Pelvis: Stable nontender. Genitourinary: Deferred. Rectal: Deferred. Extremities: Atraumatic, negative for cords or calf pain. Neurovascular unremarkable. Range of motion without any defects or deficits and there is no overt swelling of the left upper extremity appreciated. Neuro: Awake, alert, oriented. Cranial nerves II through XII unremarkable. Cerebellum unremarkable. Motor and sensory unremarkable throughout. Exam nonfocal. Strength is intact throughout 5/5 with good demurrage agent and gait was normal into the ED. There is no evidence of any facial droop speech changes. Diagnostics: CBC CMP UA TSH CT scan of the head and C-spine Therapeutics: I did discuss with the patient that a lot of his complaints are more chronic and need to be addressed in the clinic but that we'll perform some basic testing here for his more acute concerns such as the tingling in his left upper extremity and his episode of facial numbness that is since improved. He states understanding that there are more tests that need to be performed and will likely need to be done in the clinic. Patient family at bedside are aware of all testing results Impression: Nonspecific paresthesias, generalized malaise, incidental sinusitis asymptomatic Definitive disposition and diagnosis as appropriate pending reevaluation and review of above. left hand/arm Pain Score (Numeric/FACES): 1 - Related Data Allergies Allergy/AdvReac Type Severity Reaction Status Date / Time aspirin Allergy Stomach Verified 09/24/17 23:49 Upset Home Meds: Home Meds Glucosamine/D3/Boswellia Aileen [Osteo Bi-Flex Caplet] 1 each PO DAILY 07/07/17 [ History] Omeprazole Magnesium [Prilosec Otc] 20 mg PO BID 07/07/17 [History] Past Medical History - Past Health History Medical/Surgical History: Denies Medical/Surgical History HEENT History: Reports: None Cardiovascular History: Reports: None Respiratory History: Reports: None Gastrointestinal History: Reports: GERD Genitourinary History: Reports: None Musculoskeletal History: Reports: None Neurological History: Reports: None Psychiatric History: Reports: None Endocrine/Metabolic History: Reports: None Hematologic History: Reports: None Immunologic History: Reports: None Oncologic (Cancer) History: Reports: None Dermatologic History: Reports: None - Infectious Disease History Infectious Disease History: Reports: Chicken Pox, Measles - Past Surgical History Head Surgeries/Procedures: Reports: None Social & Family History - Family History Family Medical History: Noncontributory - Caffeine Use Caffeine Use: Reports: None ED ROS GENERAL - Review of Systems Review Of Systems: ROS reveals no pertinent complaints other than HPI. ED EXAM, GENERAL - Physical Exam Exam: See Below (See dictation) Course - Vital Signs Last Recorded V/S: Last Vital Signs Temp 36.1 C 09/24/17 23:45 Pulse 68 09/24/17 23:45 Resp 18 09/24/17 23:45 BP 132/75 09/24/17 23:45 Pulse Ox 98 09/24/17 23:45 - Orders/Labs/Meds Orders: Active Orders 24 hr Category Date Time Status Cervical Spine wo Cont [CT] Stat Exams 09/24/17 23:55 Taken Head wo Cont [CT] Stat Exams 09/24/17 23:58 Taken UA W/MICROSCOPIC [URIN] Stat Lab 09/25/17 00:10 Ordered Labs: Laboratory Tests 09/24/17 09/24/17 09/25/17 Range/Units 00:10 00:10 00:10 WBC 8.35 (4.0-11.0) K/uL RBC 5.31 (4.50-5.90) M/uL Hgb 16.3 (13.0-17.0) g/dL Hct 45.5 (38.0-50.0) % MCV 85.7 (80.0-98.0) fL MCH 30.7 (27.0-32.0) pg MCHC 35.8 (31.0-37.0) g/dL RDW Std Deviation 38.9 (28.0-62.0) fl RDW Coeff of [place] 13 (11.0-15.0) % Plt Count 247 (150-400) K/uL MPV 10.70 (7.40-12.00) fL Neut % (Auto) 50.9 (48.0-80.0) % Lymph % (Auto) 32.3 (16.0-40.0) % [place] % (Auto) 12.5 (0.0-15.0) % Eos % (Auto) 4.2 (0.0-7.0) % Baso % (Auto) 0.1 (0.0-1.5) % Neut # (Auto) 4.3 (1.4-5.7) K/uL Lymph # (Auto) 2.7 H (0.6-2.4) K/uL [place] # (Auto) 1.0 H (0.0-0.8) K/uL Eos # (Auto) 0.4 (0.0-0.7) K/uL Baso # (Auto) 0.0 (0.0-0.1) K/uL Nucleated RBC % 0.0 /100WBC Nucleated RBCs # 0 K/uL Sodium 140 (136-148) mmol/L Potassium 3.8 (3.5-5.1) mmol/L Chloride 105 (98-107) mmol/L Carbon Dioxide 24.1 (21.0-32.0) mmol/L BUN 24 H (7.0-18.0) mg/dL Creatinine 1.3 (0.8-1.3) mg/dL Est Cr Clr Drug Dosing 71.76 mL/min Estimated GFR (MDRD) 59.7 ml/min Glucose 102 (74-106) mg/dL Calcium 9.3 (8.5-10.1) mg/dL Total Bilirubin 0.3 (0.2-1.0) mg/dL AST 21 (15-37) IU/L ALT 39 (14-63) IU/L Alkaline Phosphatase 130 H (46-116) U/L Total Protein 7.1 (6.4-8.2) g/dL Albumin 3.9 (3.4-5.0) g/dL Globulin 3.2 (2.0-3.5) g/dL Albumin/Globulin Ratio 1.2 L (1.3-2.8) TSH 3rd Generation 3.16 (0.36-3.74) uIU/mL Urine Color YELLOW Urine Appearance CLEAR Urine pH 6.0 (5.0-8.0) Ur Specific [place] 1.015 (1.001-1.035) Urine Protein NEGATIVE (NEGATIVE) mg/dL Urine Glucose (UA) NEGATIVE (NEGATIVE) mg/dL Urine Ketones NEGATIVE (NEGATIVE) mg/dL Urine Occult Blood NEGATIVE (NEGATIVE) Urine Nitrite NEGATIVE (NEGATIVE) Urine Bilirubin NEGATIVE (NEGATIVE) Urine Urobilinogen 0.2 (<2.0) EU/dL Ur Leukocyte Esterase NEGATIVE (NEGATIVE) Urine RBC 0-1 (0-2/HPF) Urine WBC 0-1 (0-5/HPF) Ur Epithelial Cells RARE (NONE-FEW) Urine Bacteria RARE (NEGATIVE) Departure - Departure Time of Disposition: 01:43 Disposition: Home, Self-Care 01 Condition: Good Clinical Impression: Paresthesia, Malaise and fatigue Sinusitis Qualifiers: Sinusitis location: unspecified location Chronicity: unspecified Qualified Code (s): J32.9 - Chronic sinusitis, unspecified - Discharge Information Instructions: Fatigue, Sinusitis, Adult, Paresthesia, [id number] Referrals: PCP,None [Primary Care Provider] - Forms: ED Department Discharge Additional Instructions: The following information is given to patients seen in the emergency department who are being discharged to home. This information is to outline your options for follow-up care. We provide all patients seen in our emergency department with a follow-up referral. The need for follow-up, as well as the timing and circumstances, are variable depending upon the specifics of your emergency department visit. If you don't have a primary care physician on staff, we will provide you with a referral. We always advise you to contact your personal physician following an emergency department visit to inform them of the circumstance of the visit and for follow-up with them and/or the need for any referrals to a consulting specialist. The emergency department will also refer you to a specialist when appropriate. This referral assures that you have the opportunity for followup care with a specialist. All of these measure are taken in an effort to provide you with optimal care, which includes your followup. Under all circumstances we always encourage you to contact your private physician who remains a resource for coordinating your care. When calling for followup care, please make the office aware that this follow-up is from your recent emergency room visit. If for any reason you are refused follow-up, please contact the [facility] emergency department at and ask to speak to the emergency department charge nurse. [facility] Primary care- Internal Medicine and Family [address] [address] Please start [id number] Claritin or Clarissa take for the next 10 days to help dry the fluid in her sinuses. Please contact the clinic tomorrow morning and schedule a follow-up appointment as we discussed for further investigation and care of your symptomatology. Return to ER as needed and as discussed - My Orders Last 24 Hours: My Active Orders 09/24/17 23:55 Cervical Spine wo Cont [CT] Stat 09/24/17 23:58 Head wo Cont [CT] Stat 09/25/17 00:10 UA W/MICROSCOPIC [URIN] Stat - Assessment/Plan Last 24 Hours: My Active Orders 09/24/17 23:55 Cervical Spine wo Cont [CT] Stat 09/24/17 23:58 Head wo Cont [CT] Stat 09/25/17 00:10 UA W/MICROSCOPIC [URIN] Stat
[2017-09-25 01:47] VITALS: BP 114/86
--- NOTE | 2017-09-25 16:11 | CT ---
EXAM DATE: 09/24/17 PATIENT'S AGE: 47 Patient: ROWAN MURPHY Facility: [place], [place] Site . Site : 1970 Study: CT Head [id number]/9/2018 12:24:17 AM Ordering Physician: Narciso Horowitz Final Report: INDICATION: Fall in June, fatigue since L arm tingling today CT HEAD WITHOUT CONTRAST TECHNIQUE: Multiple axial CT images were performed through the head without intravenous contrast administration. COMPARISON: No previous studies are currently available for comparison. FINDINGS: No acute intracranial hemorrhage is identified. No extra-axial collections are evident and there is no mass effect or midline shift. Ventricles are normal in size and configuration. Brain parenchyma appears normal with unremarkable donnelly-white differentiation. Osseous structures are within normal limits and no fractures are seen. Included portions of the paranasal sinuses and mastoid air cells are normally aerated except for mucosal thickening within the frontal and ethmoid sinuses bilaterally consistent with sinusitis. IMPRESSION: 1. No intracranial abnormality identified. 2. Frontal and ethmoid sinusitis. ZACH CURRIE MD [employer] Dictated by Edu Currie MD @ 09/25/2017 12:43:48 AM Dictated by: Edu Currie MD @ 09/25/2017 00:44:33 (Electronic Signature) Report Signed by Proxy. [facility]
--- NOTE | 2017-09-25 16:12 | CT ---
EXAM DATE: 09/24/17 PATIENT'S AGE: 47 Patient: ROWAN MURPHY Facility: [place], [place] Site . Site : 1970 Study: CT Spine Cervical [id number]/9/2018 12:24:50 AM Ordering Physician: Lor Stuart MD Final Report: INDICATION: Fall in June, fatigue since L arm tingling today CT CERVICAL SPINE WITHOUT CONTRAST TECHNIQUE: Multidetector axial CT imaging was performed through the cervical spine, without contrast. Sagittal and coronal reconstructions were generated. FINDINGS: No acute fractures are identified. Osseous alignment is unremarkable and no subluxation is seen. Prevertebral soft tissues appear normal. There are a few scattered minor degenerative changes in the cervical spine. Included portions of the airway and lung apices are within normal limits. IMPRESSION: No fracture, subluxation, or other acute finding identified. ZACH CURRIE MD [employer] Dictated by: Edu Currie MD @ 09/25/2017 00:45:58 (Electronic Signature) Report Signed by Proxy. [facility]
== END 2017-09-25 01:47 | disposition home or self-care (01) ==
LOC: MW.ED 23:35
DX: J32.9 Chronic sinusitis, unspecified (principal); R53.81 Other malaise; R20.2 Paresthesia of skin; Z88.6 Allergy status to analgesic agent; Z79.899 Other long term (current) drug therapy
CPT/HCPCS: 36415; 70450; 70450-26; 72125; 72125-26; 80053; 81001; 84443; 85025; 99283; 99283-25

== ENCOUNTER 2018-07-04 14:14 | Emergency (ER) | payer BC, OTHER ==
--- NOTE | 2018-07-04 14:21 | EDM.PDOC ---
ED HPI GENERAL MEDICAL PROBLEM - General Stated Complaint: SORE THROAT AND EAR PAIN Time Seen by Provider: 07/04/18 14:15 Source of Information: Reports: Patient History Limitations: Reports: No Limitations - History of Present Illness INITIAL COMMENTS - FREE TEXT/NARRATIVE: History of present illness: []Patient has had a sore throat and right ear pain for over a month. He was treated at [facility] and [facility] with 2 different antibiotics , steroids and inhalers without relief. Patient is requesting a work note to stay home tomorrow Review of systems: As per history of present illness and below otherwise all systems reviewed and negative. Past medical history: As per history of present illness and as reviewed below otherwise noncontributory. Surgical history: As per history of present illness and as reviewed below otherwise noncontributory. Social history: No reported history of drug or alcohol abuse. Family history: As per history of present illness and as reviewed below otherwise noncontributory. Physical exam: General: Well developed, well nourished in NAD HEENT: Atraumatic, normocephalic, pupils reactive, negative for conjunctival pallor or scleral icterus, mucous membranes moist, throat clear, no erythema no edema or exudate neck supple, nontender, trachea midline. TMs appear normal, no palpable adenopathy Lungs: Clear to auscultation, breath sounds equal bilaterally, chest nontender. No wheezing or rhonchi Heart: S1S2, regular, negative for clicks, rubs, or JVD. Abdomen: NABS, Soft, nondistended, nontender. Negative for masses or hepatosplenomegaly. Negative for costovertebral tenderness. Pelvis: Stable nontender. Genitourinary: Deferred. Rectal: Deferred. Extremities: Atraumatic, negative for cords or calf pain. Neurovascular unremarkable. Neuro: Awake, alert, oriented. Cranial nerves II through XII unremarkable. Cerebellum unremarkable. Motor and sensory unremarkable throughout. Exam nonfocal. Skin:warm and dry Diagnostics: None Therapeutics: None ED Course: Unremarkable Impression: Medical screening exam Prescriptions: None Plan: Treat symptoms with Tylenol or Motrin follow-up with primary care as needed. Definitive disposition and diagnosis as appropriate pending reevaluation and review of above. Throat Pain Score (Numeric/FACES): 8 - Related Data Allergies Allergy/AdvReac Type Severity Reaction Status Date / Time aspirin Allergy Stomach Verified 07/04/18 14:29 Upset Home Meds: Home Meds Omeprazole Magnesium [Prilosec Otc] 20 mg PO BID 07/07/17 [History] Past Medical History - Past Health History Medical/Surgical History: Denies Medical/Surgical History HEENT History: Reports: None Cardiovascular History: Reports: None Respiratory History: Reports: None Gastrointestinal History: Reports: GERD Genitourinary History: Reports: None Musculoskeletal History: Reports: None Neurological History: Reports: None Psychiatric History: Reports: None Endocrine/Metabolic History: Reports: None Hematologic History: Reports: None Immunologic History: Reports: None Oncologic (Cancer) History: Reports: None Dermatologic History: Reports: None - Infectious Disease History Infectious Disease History: Reports: Chicken Pox, Measles - Past Surgical History Head Surgeries/Procedures: Reports: None Social & Family History - Family History Family Medical History: Noncontributory - Caffeine Use Caffeine Use: Reports: None ED ROS ENT - Review of Systems Review Of Systems: ROS reveals no pertinent complaints other than HPI. ED EXAM, ENT - Physical Exam Exam: See Below (See history of present illness) Course - Vital Signs Last Recorded V/S: Last Vital Signs Temp 96.8 F 07/04/18 14:26 Pulse 86 07/04/18 14:26 Resp 15 07/04/18 14:26 BP 111/70 07/04/18 14:26 Pulse Ox 96 07/04/18 14:26 Departure - Departure Time of Disposition: 14:48 Disposition: Home, Self-Care 01 Condition: Good Clinical Impression: Encounter for medical screening examination Clinical Impression: (Ruled Out): Viral URI - Discharge Information *PRESCRIPTION DRUG MONITORING PROGRAM REVIEWED*: No *COPY OF PRESCRIPTION DRUG MONITORING REPORT IN PATIENT PHILIPP: No Additional Instructions: The following information is given to patients seen in the emergency department who are being discharged to home. This information is to outline your options for follow-up care. We provide all patients seen in our emergency department with a follow-up referral. The need for follow-up, as well as the timing and circumstances, are variable depending upon the specifics of your emergency department visit. If you don't have a primary care physician on staff, we will provide you with a referral. We always advise you to contact your personal physician following an emergency department visit to inform them of the circumstance of the visit and for follow-up with them and/or the need for any referrals to a consulting specialist. The emergency department will also refer you to a specialist when appropriate. This referral assures that you have the opportunity for follow-up care with a specialist. All of these measure are taken in an effort to provide you with optimal care, which includes your follow-up. Under all circumstances we always encourage you to contact your private physician who remains a resource for coordinating your care. When calling for follow-up care, please make the office aware that this follow-up is from your recent emergency room visit. If for any reason you are refused follow-up, please contact the [facility] Emergency Department at and asked to speak to the emergency department charge nurse. [facility] Primary Care [address] [place] [id number]
[2018-07-04 15:08] VITALS: BP 122/75
== END 2018-07-04 15:07 | disposition home or self-care (01) ==
LOC: MW.ED 14:14
DX: Z13.9 Encounter for screening, unspecified (principal); Z88.6 Allergy status to analgesic agent
CPT/HCPCS: 99282

== ENCOUNTER 2019-08-07 05:45 | Emergency (ER) | payer SELFPAY ==
[2019-08-07] MEDS ORDERED: Sodium Chloride 0.9% 1,000 ML IV ONE ×2 (06:00→07:25)
[2019-08-07] MEDS ORDERED: Sodium Chloride 0.9% 10 ML Syringe FLUSH PRN (06:00)
[2019-08-07] MEDS ORDERED: Sodium Chloride 0.9% 2.5 ML Syringe FLUSH PRN (06:00)
[2019-08-07] MEDS ORDERED: Ondansetron 4 MG/2 ML SDV IVPUSH ONE (06:00)
--- NOTE | 2019-08-07 06:26 | EDM.PDOC ---
ED HPI GENERAL MEDICAL PROBLEM - General Chief Complaint: Gastrointestinal Problem Stated Complaint: VOMITING, DEHYDRATED Time Seen by Provider: 08/07/19 05:57 - History of Present Illness INITIAL COMMENTS - FREE TEXT/NARRATIVE: 49-year-old, no medical problems presenting to ER for nausea and vomiting. started night of presentation to ER. no Fever no abdominal pain no diarrhea. Patient feels like he has food poisoning. No bleeding anywhere, no chest pain no shortness of breath. His urine is darker. Denies any other associated symptoms. Has had multiple episodes of nonbloody nonbilious emesis. Does not recall anything that makes it better or worse. No headache. Back Pain Score (Numeric/FACES): 3 - Related Data Allergies Allergy/AdvReac Type Severity Reaction Status Date / Time aspirin Allergy Stomach Verified 08/07/19 05:58 Upset Home Meds: Home Meds Omeprazole Magnesium [Prilosec Otc] 20 mg PO DAILY 07/07/17 [History] Loratadine/Pseudoephedrine [Claritin-D 24 Hour Tablet] 1 each PO DAILY 08/07/19 [History] Past Medical History - Past Health History Medical/Surgical History: Denies Medical/Surgical History HEENT History: Reports: None Cardiovascular History: Reports: None Respiratory History: Reports: None Gastrointestinal History: Reports: GERD Genitourinary History: Reports: None Musculoskeletal History: Reports: None Neurological History: Reports: None Psychiatric History: Reports: None Endocrine/Metabolic History: Reports: None Hematologic History: Reports: None Immunologic History: Reports: None Oncologic (Cancer) History: Reports: None Dermatologic History: Reports: None - Infectious Disease History Infectious Disease History: Reports: None - Past Surgical History Head Surgeries/Procedures: Reports: None Social & Family History - Family History Family Medical History: Noncontributory - Tobacco Use Smoking Status *Q: Never Smoker - Caffeine Use Caffeine Use: Reports: None - Recreational Drug Use Recreational Drug Use: No ED ROS GENERAL - Review of Systems Review Of Systems: Comprehensive ROS is negative, except as noted in HPI. Neurological: Reports: No Symptoms. Denies: Headache ED EXAM, GI/ABD - Physical Exam Exam: See Below Exam Limited By: No Limitations General Appearance: Alert Throat/Mouth: Normal Inspection Neck: Normal Inspection Respiratory/Chest: Lungs Clear Cardiovascular: Normal Peripheral Pulses, Regular Rate, Rhythm, No JVD, No Murmur, No Rub GI/Abdominal Exam: Soft, Non-Tender Back Exam: Normal Inspection. No: CVA Tenderness (L), CVA Tenderness (R) Extremities: Normal Inspection Neurological: Alert, Normal Gait EKG INTERPRETATION Rhythm: NSR [place]: Normal ST-T: Normal EKG Interpretation Comments: basyosi artificat, no overt ischemic changes Course - Vital Signs Last Recorded V/S: Last Vital Signs Temp 96.9 F 08/07/19 08:21 Pulse 98 08/07/19 08:21 Resp 18 08/07/19 08:21 BP 136/92 H 08/07/19 08:21 Pulse Ox 96 08/07/19 08:21 - Orders/Labs/Meds Orders: Active Orders 24 hr Category Date Time Status EKG Documentation Completion [RC] STAT Care 08/07/19 06:00 Active Sodium Chloride 0.9% [Saline Flush] Med 08/07/19 06:00 Active 10 ml FLUSH ASDIRECTED PRN Sodium Chloride 0.9% [Saline Flush] Med 08/07/19 06:00 Active 2.5 ml FLUSH ASDIRECTED PRN Saline Lock Insert [OM.PC] Stat Oth 08/07/19 06:00 Ordered Medication Orders Sodium Chloride (Saline Flush) 10 ml FLUSH ASDIRECTED PRN PRN Reason: Keep Vein Open Last Admin: 08/07/19 06:15 Dose: 10 ml Sodium Chloride (Saline Flush) 2.5 ml FLUSH ASDIRECTED PRN PRN Reason: Keep Vein Open Last Admin: 08/07/19 06:15 Dose: 2.5 ml Labs: Laboratory Tests 08/07/19 08/07/19 08/07/19 Range/Units 06:01 06:14 06:14 WBC 12.19 H (4.0-11.0) K/uL RBC 5.90 (4.50-5.90) M/uL Hgb 17.7 H (13.0-17.0) g/dL Hct 51.4 H (38.0-50.0) % MCV 87.1 (80.0-98.0) fL MCH 30.0 (27.0-32.0) pg MCHC 34.4 (31.0-37.0) g/dL RDW Std Deviation 39.4 (28.0-62.0) fl RDW Coeff of [place] 12 (11.0-15.0) % Plt Count 233 (150-400) K/uL MPV 11.00 (7.40-12.00) fL Nucleated RBC % 0.0 /100WBC Nucleated RBCs # 0 K/uL Sodium 141 (136-148) mmol/L Potassium 3.9 (3.5-5.1) mmol/L Chloride 106 (98-107) mmol/L Carbon Dioxide 25.9 (21.0-32.0) mmol/L BUN 21 H (7.0-18.0) mg/dL Creatinine 1.4 H (0.8-1.3) mg/dL Est Cr Clr Drug Dosing 65.23 mL/min Estimated GFR (MDRD) 54.3 ml/min Glucose 116 H (74-106) mg/dL Calcium 8.9 (8.5-10.1) mg/dL Total Bilirubin 1.0 (0.2-1.0) mg/dL AST 27 (15-37) IU/L ALT 46 (14-63) IU/L Alkaline Phosphatase 116 (46-116) U/L Creatine Kinase 261 (26-308) U/L Troponin I < 0.050 (0.000-0.056) ng/mL Total Protein 7.4 (6.4-8.2) g/dL Albumin 4.0 (3.4-5.0) g/dL Globulin 3.4 (2.6-4.0) g/dL Albumin/Globulin Ratio 1.2 (0.9-1.6) Lipase 130 (73-393) U/L Urine Color YELLOW Urine Appearance CLEAR Urine pH 6.0 (5.0-8.0) Ur Specific [place] >= 1.030 (1.001-1.035) Urine Protein NEGATIVE (NEGATIVE) mg/dL Urine Glucose (UA) NEGATIVE (NEGATIVE) mg/dL Urine Ketones NEGATIVE (NEGATIVE) mg/dL Urine Occult Blood NEGATIVE (NEGATIVE) Urine Nitrite NEGATIVE (NEGATIVE) Urine Bilirubin NEGATIVE (NEGATIVE) Urine Urobilinogen 0.2 (<2.0) EU/dL Ur Leukocyte Esterase NEGATIVE (NEGATIVE) Meds: Medications Generic Name Dose Route Start Last Admin Trade Name Freq PRN Reason Stop Dose Admin Sodium Chloride 10 ml 08/07/19 06:00 08/07/19 06:15 Saline Flush FLUSH 10 ml ASDIRECTED PRN Administration Keep Vein Open Sodium Chloride 2.5 ml 08/07/19 06:00 08/07/19 06:15 Saline Flush FLUSH 2.5 ml ASDIRECTED PRN Administration Keep Vein Open Discontinued Medications Generic Name Dose Route Start Last Admin Trade Name Cayla PRN Reason Stop Dose Admin Sodium Chloride 1,000 mls @ 999 mls/hr 08/07/19 06:00 08/07/19 06:14 Normal Saline IV 08/07/19 07:00 999 mls/hr .Bolus ONE Administration Sodium Chloride 1,000 mls @ 999 mls/hr 08/07/19 07:25 08/07/19 07:32 Normal Saline IV 08/07/19 08:25 999 mls/hr .BOLUS ONE Administration Ondansetron HCl 4 mg 08/07/19 06:00 08/07/19 06:14 Zofran IVPUSH 08/07/19 06:01 4 mg ONETIME ONE Administration - Re-Assessments/Exams Free Text/Narrative Re-Assessment/Exam: 08/07/19 07:20 Abd exam benign. Vomiting likely from gastro enteritis. repeat abdominal exam benign. labs reviewed, no significant electorlyte abnormalities. return precautions discussed with the patient. no vomiting in ED. told him to return to ED if he developed headache, abd pain, chest pain, bleeding, inability to tolerate po or any concerns. 08/07/19 08:01 tachycardia improving with fluids. patient does not have any abdominal pain, appears non toxic. likely volume depletion from vomiting. Departure - Departure Time of Disposition: 07:22 Disposition: Home, Self-Care 01 Clinical Impression: Gastroenteritis - Discharge Information Instructions: Viral Gastroenteritis, Adult, [id number] Referrals: PCP,None [Primary Care Provider] - Forms: ED Department Discharge Additional Instructions: Return to ED if you develop abdominal pain fever dehydration inability to tolerate p.o. headache shortness of breath or any concerns. fllow up with your regular physician The following information is given to patients seen in the emergency department who are being discharged to home. This information is to outline your options for follow-up care. We provide all patients seen in our emergency department with a follow-up referral. The need for follow-up, as well as the timing and circumstances, are variable depending upon the specifics of your emergency department visit. If you don't have a primary care physician on staff, we will provide you with a referral. We always advise you to contact your personal physician following an emergency department visit to inform them of the circumstance of the visit and for follow-up with them and/or the need for any referrals to a consulting specialist. The emergency department will also refer you to a specialist when appropriate. This referral assures that you have the opportunity for follow-up care with a specialist. All of these measure are taken in an effort to provide you with optimal care, which includes your follow-up. Under all circumstances we always encourage you to contact your private physician who remains a resource for coordinating your care. When calling for follow-up care, please make the office aware that this follow-up is from your recent emergency room visit. If for any reason you are refused follow-up, please contact the [facility] Emergency Department at and asked to speak to the emergency department charge nurse. Sepsis Event Note - Evaluation Sepsis Screening Result: No Definite Risk - Focused Exam Vital Signs: Vital Signs Temp Pulse Resp BP Pulse Ox 08/07/19 08:21 96.9 F 98 18 136/92 H 96 08/07/19 07:30 97.5 F 105 H 16 120/84 94 L 08/07/19 05:54 96.9 F 115 H 18 112/76 97 Date Exam was Performed: 08/07/19 Time Exam was Performed: 08:33 - My Orders Last 24 Hours: My Active Orders 08/07/19 06:00 EKG Documentation Completion [RC] STAT Sodium Chloride 0.9% [Saline Flush] 10 ml FLUSH ASDIRECTED PRN Sodium Chloride 0.9% [Saline Flush] 2.5 ml FLUSH ASDIRECTED PRN Saline Lock Insert [OM.PC] Stat - Assessment/Plan Last 24 Hours: My Active Orders 08/07/19 06:00 EKG Documentation Completion [RC] STAT Sodium Chloride 0.9% [Saline Flush] 10 ml FLUSH ASDIRECTED PRN Sodium Chloride 0.9% [Saline Flush] 2.5 ml FLUSH ASDIRECTED PRN Saline Lock Insert [OM.PC] Stat
[2019-08-07 06:48] LABS: BLOOD UREA NITROGEN,BUN 21 mg/dL (7.0-18.0); CARBON DIOXIDE,CO2 25.9 mmol/L (21.0-32.0); CHLORIDE,CL 106 mmol/L (98-107); GLUCOSE RANDOM 116 mg/dL (74-106); LIPASE 130 U/L (73-393); POTASSIUM,K 3.9 mmol/L (3.5-5.1); SODIUM,NA 141 mmol/L (136-148)
[2019-08-07 08:21] VITALS: BP 136/92; PULSE 98
== END 2019-08-07 08:36 | disposition home or self-care (01) ==
LOC: MW.ED 05:45
DX: K52.9 Noninfective gastroenteritis and colitis, unspecified (principal); K21.9 Gastro-esophageal reflux disease without esophagitis; Z79.899 Other long term (current) drug therapy; Z88.8 Allergy status to other drugs, medicaments and biological substances
CPT/HCPCS: 36415; 80053; 81003; 82550; 83690; 84484; 85027; 93005; 96361; 96374; 99284; J2405; J7030

== ENCOUNTER 2021-07-17 03:28 | Emergency (ER) | payer BC ==
[2021-07-17] MEDS: Ondansetron 4 MG/2 ML SDV IVPUSH ONE ×2 (03:44→06:17)
[2021-07-17] MEDS: Sodium Chloride 0.9% 1,000 ML IV ONE ×2 (03:44→04:24)
[2021-07-17 04:13] LABS: CARBON DIOXIDE,CO2 24.5 mmol/L (21.0-32.0); POTASSIUM,K 3.9 mmol/L (3.5-5.1)
[2021-07-17] MEDS: Iopamidol 755 MG/ML 500 ML Multipack Bottle IVPUSH STA (05:01)
[2021-07-17 06:21] VITALS: BP 114/80; PULSE 103
== END 2021-07-17 06:27 | disposition home or self-care (01) ==
LOC: MW.ED 03:28
DX: R11.2 Nausea with vomiting, unspecified (principal); K21.9 Gastro-esophageal reflux disease without esophagitis; Z88.8 Allergy status to other drugs, medicaments and biological substances; Z79.899 Other long term (current) drug therapy
CPT/HCPCS: 36415; 74177; 80053; 83690; 83735; 85025; 96374; 96376; 99284; J2405; J7030; Q9967